=== PATIENT | female | born 1980 | race Caucasian/White ===

== ENCOUNTER 2018-05-17 05:49 | Inpatient (IN) | payer MEDICAID, OTHER ==
[~2018-05-17 05:49] MED LIST: Buffered Lidocaine 0.9% SYRIN* 5 ML/SYR SYRINGE INTRADERM ONE
[2018-05-17] MEDS ORDERED: Heparin VIAL(*) 5000 UNITS/ML VIAL (FIVE THOUSAND) ONE (08:01)
[2018-05-17] MEDS ORDERED: ceFAZolin 1 GM ADVAN(*) 1 GM ADDV.VIAL IVPB ONE (08:02)
[2018-05-17] MEDS ORDERED: ceFAZolin 2 GM PREMIX in ORs 2 GM/50 ML BAG IVPB ONE (08:02)
[2018-05-17] MEDS ORDERED: Bupivacaine 0.25% W/EPI* 10 ML SDV ONE (09:15)
[2018-05-17] MEDS ORDERED: Atracurium* 10 MG/ML 10 ML VIAL ONE (09:18)
[2018-05-17] MEDS ORDERED: Midazolam* 1 MG/ML 5 ML VIAL (5 MG) ONE (09:18)
[2018-05-17] MEDS ORDERED: Propofol* 10 MG/ML 20 ML BTL IV PUSH ONE (09:18)
[2018-05-17] MEDS ORDERED: fentaNYL* 50 MCG/ML 2 ML VIAL (100 MCG VIAL) ONE ×3 (09:18→11:26)
[2018-05-17] MEDS ORDERED: Dexamethasone IV* 4 MG/ML 1 ML (4 MG) ONE (09:53)
[2018-05-17] MEDS ORDERED: Scopolamine 1.5 mg* PATCH TRANSDERM PRN (10:48)
[2018-05-17] MEDS ORDERED: Naloxone* 0.4 MG/ML 1 ML VIAL IV PRN (10:48)
[2018-05-17] MEDS ORDERED: Ondansetron INJ* 2 MG/ML VIAL IV PRN (10:48)
[2018-05-17] MEDS ORDERED: DiMENhydriNATE IV* 50 MG/ML VIAL IV PUSH PRN (10:48)
[2018-05-17] MEDS ORDERED: Ketorolac INJ* 30 MG/ML 1 ML VIAL ONE (10:55)
[2018-05-17] MEDS ORDERED: Ondansetron INJ* 2 MG/ML VIAL ONE ×2 (10:55→12:00)
[2018-05-17] MEDS ORDERED: Glycopyrrolate IV* 0.2 MG/ML 1 ML VIAL ONE (11:07)
[2018-05-17] MEDS ORDERED: Scopolamine 1.5 mg* PATCH ONE (11:26)
[2018-05-17] MEDS ORDERED: HYDROmorphone INJ1* 1 MG/ML SYRINGE ONE (11:26)
[2018-05-17] MEDS ORDERED: DiMENhydriNATE IV* 50 MG/ML VIAL ONE (11:26)
--- NOTE | 2018-05-17 11:27 | OP ---
Operative Report - Blank - Operative Report Date of Operation: 05/17/18 Note: Brief Operative Note Preop Dx: Morbid Obesity Postop Dx: same Procedure: laparoscopic sleeve gastrectomy Anesthesia: GET Surgeon: Arabella Spout Tender: LEANDRA Allen Fluids: 1900 ml RL EBL: < 25 ml Specimen: portion of stomach Drains: none Findings: dictated
[2018-05-17] MEDS ORDERED: diPHENhydraMINE IV* 50 MG/ML 1 ml VIAL (BENADRYL) SLOW PUSH PRN (11:28)
[2018-05-17] MEDS ORDERED: HYDROmorphone INJ1* 1 MG/ML SYRINGE IV PRN ×2 (11:28)
[2018-05-17] MEDS: fentaNYL* 50 MCG/ML 2 ML VIAL (100 MCG VIAL) IV PRN ×2 (11:28→12:02)
[2018-05-17] MEDS ORDERED: Acetaminophen ADULT LIQ* 650 MG/20.3 ML UDC PO PRN (11:28)
[2018-05-17] MEDS ORDERED: HYDROcodone/ACET. 7.5/325 LIQ* 15 ML UDC PO PRN (11:28)
[2018-05-17] MEDS: HYDROmorphone INJ1* 1 MG/ML SYRINGE IV PRN ×2 (11:29→12:02)
[2018-05-17] MEDS ORDERED: Ondansetron ODT TAB* 4 MG SL PRN (11:35)
[2018-05-17] MEDS: Heparin VIAL(*) 5000 UNITS/ML VIAL (FIVE THOUSAND) SUBCUT SCH ×2 (15:03→21:47)
--- NOTE | 2018-05-17 17:54 | OP ---
CC: [facility]; Rachael Coronado NP.* DATE OF OPERATION: 05/17/18 - ROOM #338 DATE OF : 82. SURGEON: Vaughn Bell M.D. CONVEYOR BELT OPERATOR: LEANDRA Rodriguez. PRIMARY CARE PHYSICIAN: Rachael Coronado NP. ANESTHESIOLOGIST: Dr. Tobar. ANESTHESIA: General anesthesia. PRE-OP DIAGNOSES: 1. Clinically severe obesity. 2. Sleep apnea. 3. Insulin resistance. POST-OP DIAGNOSES: 1. Clinically severe obesity. 2. Sleep apnea. 3. Insulin resistance. OPERATIVE PROCEDURE: Laparoscopic sleeve gastrectomy. FLUIDS GIVEN: 1900 cc of crystalloid. ESTIMATED BLOOD LOSS: Minimal. SPECIMENS: Portion of stomach. DRAINS: None. DESCRIPTION OF PROCEDURE: The patient was identified in the preoperative area. Consent was signed after the discussion with her and her family members again. She was marked, brought to the operating room, placed on the operating room table in supine position. Preoperative antibiotics were given. Sequential devices were placed on bilateral lower extremities. General anesthesia was induced. The patient's abdomen was prepped and draped in a standard surgical fashion. A time- out was performed. Folds of the umbilicus were elevated anteriorly and a Veress needle was inserted into the abdominal cavity, which was then allowed to insufflate to a pressure of 15 mmHg. The patient tolerated the insufflation well. [place] between the xiphoid and the umbilicus, a 12-mm trocar was inserted just left of midline. Laparoscope was inserted through this. There was no evidence of injury from the trocar insertion, which was just into the peritoneum or the Veress needle, which was then removed. Additional two 5-mm trocars were then placed in the left upper quadrant and a 12-mm in the right upper quadrant. Review of the abdomen showed normal-appearing bowel, enlarged liver. We placed a Deny retractor through the subxiphoid incision and retracted the liver anteriorly into the right. This exposed a gastroesophageal fat pad, which was dissected medially, but keeping it on the proximal anterior stomach. Blunt dissection as well as sharp dissection was carried out to expose the left shazia. We then entered the lesser sac along the greater curvature approximately 6 cm proximal to the pylorus. We then took the vasculature of the greater curvature right up to the angle of His where we previously made our dissection. Portion of the stomach appeared to show some injury to the serosa, but this appeared to be in what would become our specimen. Additional dissection was carried out posteriorly until we could fully rotate the stomach along its axis. We did place a 40-Kiswahili bougie in just to evaluate better the proximal stomach to make sure that we were in good space and did all the dissection we could at this point. Again, the serosal injury of the stomach did appear well away from where our staple line would be. Next, a sleeve stomach was created using a 60 mm purple BEULAH stapling devices with reinforcing strips starting at 6 cm proximal to the pylorus along the greater curvature and heading towards the incisura. We fired this after putting the bougie deeper and down to the antrum of the stomach. We completed a sleeve stomach in a standard fashion hugging the bougie as we extended up the stomach. We assured that the deserosalized area of the stomach was outside of our staple line in the portion that would become the specimen. The specimen was then placed in an endoscopic retrieval bag. Bougie was removed and the sleeve stomach lay flat without any corkscrewing. The very first staple line did show that it did pull away somewhat to posterior attachments and for this reason, I placed a single 2-0 silk suture in a figure- of- eight fashion around the staple line to bolster this area just bringing peritoneum over the staple line. Hemostasis was excellent. Deny retractor was removed. The stomach was then removed through the right upper quadrant port site in its endoscopic retrieval bag. We closed the fascia at this level with 0 Polysorb suture using an EndoClose device. We injected additional anesthetic at this site and allowed the abdomen to collapse. Trocars were removed under direct vision and all 5 skin incisions were reapproximated with 4-0 Monocryl subcuticular sutures followed by Steri-Strips and sterile dressing. The patient tolerated the procedure well and was awoken up in OR. [id number]/[facility] #: [id number] [facility] HOSPITALEwa
[2018-05-17] MEDS ORDERED: Metoclopramide IV* 5 MG/ML 2 ML VIAL ONE (17:56)
[2018-05-17] MEDS: Ketorolac INJ* 30 MG/ML 1 ML VIAL IV PRN (17:59)
[2018-05-17] MEDS: Metoclopramide IV* 5 MG/ML 2 ML VIAL IV PRN (18:00)
[2018-05-17] MEDS: Ondansetron INJ* 2 MG/ML VIAL IV PRN (21:46)
[2018-05-17] MEDS: Famotidine IV* 10 MG/ML 2 ML (20 mg) IV SLOW PU SCH (21:46)
[2018-05-18] MEDS: Metoclopramide IV* 5 MG/ML 2 ML VIAL IV PRN ×3 (00:29→20:11)
[2018-05-18] MEDS: Ketorolac INJ* 30 MG/ML 1 ML VIAL IV PRN ×2 (00:30→13:31)
[2018-05-18] MEDS: Heparin VIAL(*) 5000 UNITS/ML VIAL (FIVE THOUSAND) SUBCUT SCH ×3 (06:24→21:43)
[2018-05-18] MEDS: Ondansetron INJ* 2 MG/ML VIAL IV PRN ×2 (06:27→12:58)
--- NOTE | 2018-05-18 08:33 | RAD ---
HISTORY: s/p sleeve mastectomy COMPARISONS: July 25, 2017 TECHNIQUE: A single contrast fluoroscopic study was performed of the esophagus and upper GI tract. Water-soluble liquid contrast was administered under fluoroscopic observation. Multiple digital spot images were obtained Total fluoroscopy time is 0.6 minutes . FINDINGS: ESOPHAGUS: The esophagus is normal in contour, course, and caliber. There is no stricture or web. Contrast passes easily through the gastroesophageal junction into the stomach. There is normal esophageal motility. STOMACH: The patient is status post sleeve gastrectomy. There is spontaneous gastroesophageal reflux to the distal third of the esophagus. There is no appreciable extravasation or obstruction. No reflux was elicited on the current examination. DUODENUM: The pyloric bulb is smooth. The duodenal mucosal pattern is normal. The duodenal sweep is normal. IMPRESSION: 1. STATUS POST SLEEVE GASTRECTOMY WITHOUT APPRECIABLE EXTRAVASATION OR OBSTRUCTION. 2. GASTROESOPHAGEAL REFLUX CPT II Codes: G9500
[2018-05-18] MEDS: Famotidine IV* 10 MG/ML 2 ML (20 mg) IV SLOW PU SCH ×2 (09:51→21:41)
--- NOTE | 2018-05-18 11:56 | PN ---
Progress Note - Progress Note Date of Service: 05/18/18 SOAP: Subjective:POD#1 S/P LAP SLEEVE minimal discomfort,mild nausea;up walking;using inspiron [] Objective:afeb,VSS,uo 300ml/24h;lungs:clear bilat;heart:RRR;abd:+bs,soft,obese; incisions intact with sterstrips,no drainage;ext:nontender calves [] Assessment:postop UGI no leak,doing well [] Plan:start bariatric clears;ambulate;inspiron []
[2018-05-18] MEDS: D5W 1/2 NS KCl 20 Meq 1000 ML* 1,000 ML IV SCH ×2 (13:25→20:13)
[2018-05-19] MEDS: Ketorolac INJ* 30 MG/ML 1 ML VIAL IV PRN (01:00)
[2018-05-19] MEDS: D5W 1/2 NS KCl 20 Meq 1000 ML* 1,000 ML IV SCH (04:10)
[2018-05-19] MEDS: Heparin VIAL(*) 5000 UNITS/ML VIAL (FIVE THOUSAND) SUBCUT SCH (05:56)
[2018-05-19 08:23] VITALS: BP 129/74
[2018-05-19] MEDS: Famotidine IV* 10 MG/ML 2 ML (20 mg) IV SLOW PU SCH (10:16)
--- NOTE | 2018-05-19 11:59 | PN ---
Progress Note - Progress Note Date of Service: 05/19/18 SOAP: Subjective: Pt seen and examined. Objective: Temp Pulse Resp BP Pulse Ox 98.3 F 72 16 129/74 97 05/19/18 07:52 05/19/18 07:52 05/19/18 07:52 05/19/18 07:52 05/19/18 07:52 a and ox3, nad lungs clear abdo: soft/ ND/NT no calf tenderness Assessment: POD 2 sleeve Plan: d/c home fu appt next week case d/w NPP
--- NOTE | 2018-05-19 12:15 | DS ---
AMENDED REPORT NOW INCLUDES DESIGNATED COSIGNER CC: Dr. Bell; [facility] * DATE OF ADMISSION: 05/17/2018. DATE OF DISCHARGE: 05/19/2018. ATTENDING PHYSICIAN: Dr. Vaughn Bell * (dictated by Josefa Bynum NP). HOSPITAL COURSE: Please refer to admission history and physical for admission details. The patient was taken to the operating room on 05/17/2018 and underwent laparoscopic sleeve gastrectomy. She has had an uneventful post- operative course and as of the morning of discharge was tolerating 120 ml of clear liquids per hour. Her pain was well-controlled. She was ambulating in the [place] and using her Inspiron. PHYSICAL EXAMINATION: Vital Signs: Temperature this morning 98.3, vital signs are stable, O2 saturation 97 percent on room air. Lungs: Breath sounds bilaterally clear and equal. Heart: Regular rate and rhythm. No murmurs or rubs appreciated. Abdomen: Active bowel sounds. Laparoscopic incision sites are clean, dry, and intact. Resolving mild ecchymosis around the left lateral incision. No signs of drainage or infection. The abdomen is soft and minimally tender to palpation. Extremities: Nontender calves. IMPRESSION: Postoperative day number two, status post laparoscopic sleeve gastrectomy, doing very well. PLAN: Discharge home today. She has a follow-up appointment at [facility] next week. All of her home medications were reviewed. All of her discharge instructions were reviewed. She will follow the prescribed bariatric dietary guidelines and knows to call with any concerns. She does have liquid analgesic at home as needed and an oral antiemetic was prescribed as well. ZEKE BYNUM NP [id number]/[facility] #: [id number] LAMAR
[2018-05-20] MEDS ORDERED: Scopolamine PATCH Remove* 1 NOTE MISC PATCH OFF ONE (10:49)
== END 2018-05-19 11:15 | disposition home or self-care (01) | DRG 403 ==
LOC: AA 07:53 → SSU 13:15
PROVIDERS: ADMIT Surgery; ATTEND Surgery
PROC: 0DB64Z3 Excision of Stomach, Percutaneous Endoscopic Approach, Vertical (ICD-10-PCS; principal; 2018-05-17 09:15)
DX: E66.01 Morbid (severe) obesity due to excess calories (principal); F32.9 Major depressive disorder, single episode, unspecified; E55.9 Vitamin D deficiency, unspecified; M17.12 Unilateral primary osteoarthritis, left knee; Z96.3 Presence of artificial larynx; E88.81 Metabolic syndrome and other insulin resistance; G47.33 Obstructive sleep apnea (adult) (pediatric); R16.0 Hepatomegaly, not elsewhere classified; Z68.41 Body mass index [BMI] 40.0-44.9, adult; Z82.49 Family history of ischemic heart disease and other diseases of the circulatory system; Z82.61 Family history of arthritis; Z83.49 Family history of other endocrine, nutritional and metabolic diseases; Z83.3 Family history of diabetes mellitus
CPT/HCPCS: 43775; 74246; 81025; 88307; A9270-GY; J0690; J1100; J1170; J1240; J1644; J1885; J2250; J2405; J2704; J2765; J3010

== ENCOUNTER 2018-05-31 07:29 | Inpatient (IN) | payer OTHER ==
[2018-05-31] MEDS ORDERED: Ondansetron INJ* 2 MG/ML VIAL IV ONE (07:52)
[2018-05-31 08:30] LABS: ABS Basophils 0 10^3/ul (0-0.2); ABS Eosinophils 0 10^3/ul (0-0.6); ABS Lymphocytes 0.9 10^3/ul (1.0-4.8); ABS Monocytes 0.2 10^3/ul (0-0.8); ABS Neutrophils 7.5 10^3/ul (1.5-7.7); ABS Nucleated RBC 0 10^3/ul; Eosinophil % 0.1 % (0-6); Hematocrit 45 % (35-47); Hemoglobin 15.3 g/dl (12.0-16.0); Lymphocyte % 10.6 % (25-47); Mean Corpuscular HGB Conc 34 g/dl (31-36); Mean Corpuscular Hemoglobin 31 pg (27-31); Mean Corpuscular Volume 89 fL (80-97); Mean Platelet Volume 8.5 fL (7.4-10.4); Nucleated Red Blood Cells % 0; Platelet Count 275 10^3/ul (150-450); Red Blood Count 5.01 10^6/ul (4.00-5.40); Red Cell Distribution Width 13 % (10.5-15); White Blood Count 8.6 10^3/ul (3.5-10.8)
[2018-05-31 08:37] LABS: INR 1.06 (0.77-1.02)
[2018-05-31] MEDS ORDERED: Thiamine IV 100 MG, Folic Acid IV* 1 MG, Multiple Vitamin IV ADULT* 10 ML in NS 0.9% 10... IV ONE (08:42)
--- NOTE | 2018-05-31 08:42 | ED ---
Abdominal Pain/Female - HPI Summary HPI Summary: Patient presents with acute onset nausea, vomiting and abdominal discomfort since last night. She reports she's had bloating throughout the day yesterday and this crescendoed into nausea and vomiting which has persisted into today. Her last bowel movement was 4 days ago. She attempted to use a stool softener last night without relief. She is 2 weeks status post gastric sleeve surgery with Dr. Bell on 05/17/2018. She had a follow-up one week after surgery and everything seemed to be fine. Her diet has been the same since discharge - today was supposed to be a transition day however she has not made it to this transition. She denies trying to drink more fluids than usual or drinking faster than usual. In fact, she reports she drank less fluid than usual yesterday due to bloating. Denies fever, chills, BERNAL, URI sx, chest pain, SOB, flank pain, urinary sx, vaginal sx. No rectal bleeding or pain. Had some tenderness of her RUQ incision however this seems to be improving. Denies h/o DM and HGA1C is consistently < 6 on previous labs. No h/o ab issues otherwise. 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 Pain Intensity: 0 Allergies/Adverse Reactions: Allergies Allergy/AdvReac Type Severity Reaction Status Date / Time No Known Allergies Allergy Verified 05/17/18 08:14 PMH/Surg Hx/FS Hx/Imm Hx Previously Healthy: Yes Endocrine/Hematology History: Reports: Other Endocrine/Hematological Disorders - obese - s/p gastric sleeve Denies: Hx Anticoagulant Therapy, Hx Blood Disorders, Hx Diabetes, Autoimmune Disease Cardiovascular History: Denies: Hx Hypertension, Hx Pacemaker/ICD, Other Cardiovascular Problems/ Disorders Respiratory History: Reports: Hx Sleep Apnea - R/T TONSILS Denies: Other Respiratory Problems/Disorders GI History: Reports: Hx Irritable Bowel - reports self-diagnosis Denies: Other GI Disorders History: Denies: Hx Renal Disease Musculoskeletal History: Reports: Hx Arthritis - reports left knee Denies: Other Musculoskeletal History Sensory History: Denies: Hx Contacts or Glasses, Hx Hearing Aid Opthamlomology History: Denies: Hx Contacts or Glasses Neurological History: Denies: Other Neuro Impairments/Disorders Psychiatric History: Reports: Hx Depression - MILD. ON MEDS Denies: Hx Panic Disorder - Surgical History Surgery Procedure, Year, and Place: HEART MURMUR REPAIR, 1983, [place] - PATENT DUCTUS FORAMEN -PATCH AGE 3 ( 1.5T ONLY). C SECTION, 2010 [facility] & 2015 - [facility]. 2012, [place], LEFT KNEE. TONSILECTOMY -2013 Hx Anesthesia Reactions: No Infectious Disease History: No Infectious Disease History: Denies: Traveled Outside the [place] in Last 30 Days - Social History Lives: With Family Alcohol Use: None Hx Substance Use: No Substance Use Type: Reports: None Hx Tobacco Use: No Smoking Status (MU): Never Smoked Tobacco Review of Systems Constitutional: Negative Negative: Fever, Chills, Fatigue Eyes: Negative ENT: Negative Cardiovascular: Negative Respiratory: Negative Positive: Abdominal Pain, Vomiting, Nausea. Negative: Diarrhea Genitourinary: Negative Musculoskeletal: Negative Skin: Other - surgical wounds healing Neurological: Negative Psychological: Normal All Other Systems Reviewed And Are Negative: Yes Physical Exam Triage Information Reviewed: Yes Vital Signs On Initial Exam: Initial Vitals Temp Pulse Resp BP Pulse Ox 96.6 F 69 30 137/103 99 05/31/18 07:29 05/31/18 07:29 05/31/18 07:29 05/31/18 07:29 05/31/18 07:29 Vital Signs Reviewed: Yes Appearance: Positive: Ill-Appearing - pt tachypnic from pain/discomfort of nausea - transitions from sitting up to lying down in an effort to get comfortable, Obese Skin: Positive: Warm, Skin Color Reflects Adequate Perfusion, Dry - healing surgical wounds over ab + healing ecchymosis - no erythema, no drainage Head/Face: Positive: Normal Head/Face Inspection Eyes: Positive: Normal, EOMI, Conjunctiva Clear - anicteric sclera ENT: Positive: Normal ENT inspection, Hearing grossly normal, Pharynx normal Neck: Positive: Supple Respiratory/Lung Sounds: Positive: Clear to Auscultation, Breath Sounds Present. Negative: Rales, Rhonchi, Wheezes Cardiovascular: Positive: Normal, RRR, S1, S2 Abdomen Description: Positive: Soft, Other: - TTP epigastric region and LUQ - no rebounding (eval initially post poned d/t nausea - eval performed after zofran - pt appears more comfortable). Negative: CVA Tenderness (R), CVA Tenderness (L) Bowel Sounds: Positive: Absent Musculoskeletal: Positive: Normal, Strength/ROM Intact Neurological: Positive: Normal, Sensory/Motor Intact, Alert, Oriented to Person Place, Time, CN Intact II-III Psychiatric: Positive: Anxious - but consolable Diagnostics - Vital Signs Vital Signs Temp Pulse Resp BP Pulse Ox 05/31/18 07:29 96.6 F 69 30 137/103 99 - Laboratory Lab Results: Lab Results 05/31/18 05/31/18 05/31/18 Range/Units 07:48 08:17 08:17 WBC 8.6 (3.5-10.8) 10^3/ul RBC 5.01 (4.00-5.40) 10^6/ul Hgb 15.3 (12.0-16.0) g/dl Hct 45 (35-47) % MCV 89 (80-97) fL MCH 31 (27-31) pg MCHC 34 (31-36) g/dl RDW 13 (10.5-15) % Plt Count 275 (150-450) 10^3/ul MPV 8.5 (7.4-10.4) fL Neut % (Auto) 86.4 H (38-83) % Lymph % (Auto) 10.6 L (25-47) % Lamar % (Auto) 2.6 (0-7) % Eos % (Auto) 0.1 (0-6) % Baso % (Auto) 0.3 (0-2) % Absolute Neuts (auto) 7.5 (1.5-7.7) 10^3/ul Absolute Lymphs (auto) 0.9 L (1.0-4.8) 10^3/ul Absolute Monos (auto) 0.2 (0-0.8) 10^3/ul Absolute Eos (auto) 0 (0-0.6) 10^3/ul Absolute Basos (auto) 0 (0-0.2) 10^3/ul Absolute Nucleated RBC 0 10^3/ul Nucleated RBC % 0 INR (Anticoag Therapy) 1.06 H (0.77-1.02) APTT 30.4 (26.0-36.3) seconds POC Glucose (mg/dL) 162 H (70-100) mg/dL Result Diagrams: 06/01/18 06:20 06/01/18 06:20 Lab Statement: Any lab studies that have been ordered have been reviewed, and results considered in the medical decision making process. Re-Evaluation - Re-Evaluation First Eval Change: Improved - nausea and pain improved w/ zofran although she reports it's starting to return - ordered compazine; she appears much more comfortable, resting easily, breathing comfortably Abdominal Pain Fem Course/Dx - Course Course Of Treatment: Pt presents w/ N+V since last night. Bloating started yesterday and no BM in [address] reveals: 1. 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 There is thrombus extending into and partially occluding the portal vein. There second area of thrombus in the intrahepatic portion of the portal vein which extends into and occludes a right hepatic portal vein branch. #2. Hepatosplenomegaly and hepatic steatosis. Labs initially revealed low CO2 - suspected to be from hyperventilation d/t pain however with this finding, will check ABG. Spoke w/ Dr. Bell. Initially discussed transfer. Pt requesting [facility] as primary choice. Spoke w/ Dr. Dutton (vascular at [facility]), who reports their care for this condition would be anti-coagulation via IV heparin and monitoring. If she develops necrosis, they would get general surgery involved. Discussed this option with Dr. Bell who agrees w/ anti-coagulation here and admission to his service w/ monitoring. Reviewed pt's wt w/ Dr. Garcia who feels this is safe to rx wt based at 262 lbs. Also reviewed with pt who denies h/o head injury, bleeding, anemia, menorrhagia, hemorrhoids, etc. At time of transition of care , pt is stable and repeat lactic still WNL. She still remains comfortable w/ anti-emetics only. - Diagnoses Provider Diagnoses: Superior mesenteric vein thrombosis, Portal vein thrombosis Discharge - Sign-Out/Discharge Documenting (check all that apply): Patient Departure - Discharge Plan Condition: Stable Disposition: ADMITTED TO [facility] - Billing Disposition and Condition Condition: STABLE Disposition: Admitted to [facility]
[2018-05-31 08:47] LABS: EGFR Non-African American 127.7 (>60)
[2018-05-31 09:06] LABS: Urine Appearance Cloudy; Urine Blood Negative (Negative); Urine Color Yellow; Urine Ketones 2+ (Negative); Urine Protein Negative (Negative); Urine Specific Gravity 1.024 (1.010-1.030); Urine Urobilinogen Negative (Negative)
[2018-05-31] MEDS ORDERED: Iohexol 300* (CONTRAST) 10 ML SDV IV ONE (10:00)
[2018-05-31] MEDS ORDERED: PROCHLORPERAZINE INJ 5 MG/ML 2 ML VIAL IV ONE (10:09)
[2018-05-31] MEDS ORDERED: Heparin DRIP 25,000 UNITS(*) 25,000 UNITS/500 ML BAG IV SCH (13:45)
[2018-05-31] MEDS ORDERED: Heparin VIAL(*) 5000 UNITS/ML VIAL (FIVE THOUSAND) IV PRN (13:56)
[2018-05-31] MEDS ORDERED: Morphine VIAL* 4 MG/ML VIAL (1 ml vial) IV PRN (15:00)
[2018-05-31] MEDS ORDERED: NS 0.9% 1000 ML* 1,000 ML IV SCH (15:00)
[2018-05-31] MEDS ORDERED: Magnesium Sulfate 2 GM IV* 2 GM/50 ML BAG IVPB ONE (15:24)
--- NOTE | 2018-05-31 15:32 | HP ---
CC: Primary Care Doctor, Rachael Coronado NP; [facility] * HISTORY AND PHYSICAL UPDATE: DATE OF ADMISSION: 05/31/18 HISTORY OF PRESENT ILLNESS: Ms. Mariela Li is a 37-year-old female who is 2 weeks status post laparoscopic sleeve gastrectomy, who was doing well up until yesterday when she complained of nausea, vomiting and vague abdominal pain. Pain was diffuse, led to decreased appetite. The patient continued to have bowel movements and pass gas. She denied any fevers or chills. The patient's workup in the emergency room included a CAT scan. These images were reviewed and were suggestive of a superior mesenteric vein thrombosis extending into the portal vein with additional clot burden in the right hepatic branch of the portal vein. No free fluid was noted. No free air. PAST MEDICAL HISTORY: Unchanged including insulin resistance, depression, vitamin D deficiency, osteoarthritis, and sleep apnea. PAST SURGICAL HISTORY: Knee arthroscopy, section, tonsillectomy, thyroplasty, closure of patent ductus arteriosus, and sleeve gastrectomy. REVIEW OF SYSTEMS: As described above. No fevers or chills. Nausea and vomiting that was bilious. No change in bowel habits. Last bowel movement, however, was Tuesday and was normal. Her urine output has been nonconcentrated. She has no dysuria. Pain is under control in the emergency room with minimal narcotic. No history of thrombotic disorders. PHYSICAL EXAMINATION GENERAL: Alert and oriented x3, in no apparent distress. VITAL SIGNS: The patient is afebrile. Vital signs are stable. LUNGS: Clear to auscultation bilaterally. ABDOMEN: Soft, nondistended, nontender. No CVA tenderness. EXTREMITIES: Within normal limits. RECTAL: Exam not performed. DIAGNOSTIC STUDIES/LAB DATA: Labs reviewed show a normal white count with a left shift. An anion gap of 16 with carbon dioxide of 18. She presented with a lactate of 1, which is normal and remains low. Elevated CRP of 78. Elevated lipase of 123. CT scan as described above. 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 The emergency room physicians did reach out both to me and also vascular surgery coverage at [facility], who felt the patient would just warrant anticoagulation and possible exploratory laparotomy if the patient has ischemic bowel. She does not present with ischemic bowel at this point and the plan will be for anticoagulation and watchful waiting and bowel rest. I have asked hospitalist service to help with dosing of the heparin. We will probably convert over to Coumadin, but I will reach out to the mold loft worker for additional care. The patient may also warrant catheter-directed tPA if this is an option. I do not believe it is available at this institution, but I am reaching out to the radiology group. We will also talk with the vascular team at [facility]. The patient is aware of the plan. No antibiotics necessary. We will hold off on her medications at this point. She is getting IV fluids including a banana bag and we will follow up with additional labs that include vitamin levels as they come in. [id number]/[facility] #: [id number] LAMAR
[2018-05-31] MEDS: Heparin DRIP 25,000 UNITS(*) 25,000 UNITS/500 ML BAG IV SCH (17:27)
--- NOTE | 2018-05-31 20:14 | CONS ---
CC: Dr. Vaughn Bell; Rachael Coronado NP * CONSULTATION REPORT: DATE OF CONSULT: 05/31/18 REQUESTING PHYSICIAN IN CONSULT: Dr. Vaughn Bell. MY ATTENDING PHYSICIAN WHILE IN THE HOSPITAL: Dr. Haley Alfonso (report dictated by Juan Carlos Quintero NP). 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 HISTORY OF PRESENT ILLNESS: Ms. Sierra is a 37-year-old female patient that presented to Dr. Bell's service about 2 weeks ago for an elective gastric sleeve surgery. She underwent the procedure without any complication. She says initially she was doing well at home. She was up, ambulatory. She was minding her clear liquid diet. She unfortunately last night had developed a sudden onset of diffuse vague abdominal pain, bloating, pressure, feeling dry heaving, nauseous, in addition to the pain and nausea was not getting any better , so she was concerned that something might be going on given the recent surgery , she came in. She says she really was unable to eat or drink anything because she said her stomach was just spasming and like she was going to dry heave. She does have a history of possible SILAS, patent ductus arteriosus, history of prediabetes, and history of obesity. She denied any fever. Denied any hematemesis or coffee-ground emesis. Denied having any tarry stools. There were no reports of chest pain or shortness of breath. She says she actually made herself short of breath by taking deep breaths quickly because she said that it made the pain better. She came into the ED today. She underwent a CT pelvis, which showed occlusion of at least the proximal portion of the superior mesenteric vein, thrombus extending and partially occluding the portal vein, secondary thrombus in the intrahepatic portion of the portal vein which extends into and includes the right hepatic portal vein branch. Because of these findings, we were asked to evaluate in consult. PAST MEDICAL HISTORY: Significant for: 1. Obesity. 2. Depression. 3. SILAS. 4. PDA (patent ductus arteriosus). 5. Prediabetes. PAST SURGICAL HISTORY: She has had: 1. Gastric sleeve. 2. Knee arthroscopy. 3. x2. 4. Tonsillectomy. 5. Vocal cord surgery. 6. Closure of a PDA. HOME MEDICATIONS: Currently include Zofran 4 mg ODT every 6 hours as needed. ALLERGIES TO MEDICATIONS: Include no known drug allergies. FAMILY HISTORY: Mother was diabetes. Father had a history of hyperlipidemia. SOCIAL HISTORY: She does not smoke. She does not drink. Surrogate decision maker is her . REVIEW OF SYSTEMS: There is no documented fever. She denies having any significant weight change. There is no double vision. She denies having any ear discharge. There is no rhinorrhea. There was no sore throat. There was no thyroid enlargement. She denied having any chest pain. There was no orthopnea. There was no nocturnal dyspnea. There was abdominal pain per my HPI. There was nausea with vomiting and mostly dry heaves. No dysuria, no frequency. No seizure, no loss of consciousness. No pruritus and no skin ulcerations. Review of 14 systems was completed, all others negative. PHYSICAL EXAM: Blood pressure 112/69, pulse 72, respirations were 18, O2 sat 96 %, temperature 98.8. General: At this time, Ms. Sierra is a 37-year-old female patient. She is sitting in the ED stretcher. She does not appear to be in any acute distress. She appears to be well nourished and well developed. HEENT: Head: Atraumatic and normocephalic. Eyes: EOMs are intact. Sclerae anicteric and not pale. Throat: Oral mucosa appears to be dry. No oropharyngeal erythema. Neck was supple. Heart: Sounds S1, S2. She had a regular rate and rhythm. There were no murmurs, rubs, or gallops. Lungs were clear to auscultation bilaterally. There were no wheezes, rales, or rhonchi. Abdomen was soft, flat. There was minimal tenderness in the right upper quadrant. Bowel sounds present. She had no guarding or rebound tenderness. Extremities: Pulses were 2+ throughout. She is moving all 4 extremities with 5 /5 strength. Neurologically, she is awake, she is alert, she is oriented x3. Skin: Grossly intact. She does have incisions to the abdomen, which are clean , dry, and intact. DIAGNOSTIC STUDIES/LAB DATA: WBC of 8.6, RBC of 5.01, hemoglobin 15.3, hematocrit of 45, platelet count 275. INR of 1.06, PTT of 30.4. Sodium was 136 , potassium was 3.8, chloride of 102, bicarb of 18, BUN 8, creatinine of 0.54, glucose 170, lactate 1, calcium 10.4, mag was 1.8. Total bili 0.8, AST 30, ALT 83, alk phos 89. CRP of 78. Albumin of 5.0. Lipase 123. B12 of 1267. Beta hCG negative. Urine showed 2+ ketones, 1+ glucose. CT abdomen and pelvis obtained today, impression: Occlusion of at least the proximal portion of the SMV. There is thrombus extending partially occluding the portal vein. There is a second area of thrombus in the intrahepatic portion of the portal vein, which extends into and includes the right hepatic portal vein branch. Hepatosplenomegaly and hepatic steatosis. Old medical records were reviewed. ASSESSMENT AND PLAN: Ms. Sierra is a 37-year-old female patient coming into the surgical services today with complaints of abdominal pain, on evaluation found to have thrombus in the superior mesenteric vein and partial thrombus in the right hepatic vein. Recommendations at this point are: 1. Status post gastric sleeve bypass. We will defer the management to Dr. Bell and his team. 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 At this point, I would put her on heparin intravenously. When we were able to give her p.o., we can switch her to a NOAC in the form of Xarelto. She will need to be on this minimally 3 months. She will need to follow up with her PCP. At this point, this was provoked in the setting of recent surgery 2 weeks ago and will not need workup. We can touch base with Oncology for formal evaluation, but at this point, it seems like this is provoked. 3. Depression. Continue supportive care. 4. Obstructive sleep apnea. Follow up with her PCP. 5. History of patent ductus arteriosus. Not an active issue currently. 6. Prediabetes. She is no longer on her medication. She can follow up with her PCP. 7. DVT prophylaxis. She will be on a heparin drip. 8. Code status. Full code. 9. Fluids, electrolytes, and nutrition. N.p.o. and I will defer recommendations to Dr. Bell and his team given the recent gastric sleeve surgery. TIME SPENT: On the consult was 60 minutes, greater than half the time was spent [id number] with the patient obtaining my history and physical, other half time was spent going over the plan of care with the patient and implementing plan of care. I did discuss the plan of care with my attending, Dr. Alfonso; she is in agreement. JUAN CARLOS QUINTERO, LONG WINDER TENDER [id number]/CPS #: [id number] LAMAR
[2018-06-01] MEDS: Ondansetron INJ* 2 MG/ML VIAL IV PRN ×2 (05:32→11:44)
[2018-06-01 06:36] LABS: ABS Basophils 0 10^3/ul (0-0.2); ABS Eosinophils 0 10^3/ul (0-0.6); ABS Lymphocytes 1.9 10^3/ul (1.0-4.8); ABS Monocytes 0.4 10^3/ul (0-0.8); ABS Neutrophils 3.6 10^3/ul (1.5-7.7); ABS Nucleated RBC 0 10^3/ul; Eosinophil % 0.5 % (0-6); Hematocrit 40 % (35-47); Hemoglobin 13.8 g/dl (12.0-16.0); Lymphocyte % 32.3 % (25-47); Mean Corpuscular HGB Conc 35 g/dl (31-36); Mean Corpuscular Hemoglobin 31 pg (27-31); Mean Corpuscular Volume 88 fL (80-97); Mean Platelet Volume 8.7 fL (7.4-10.4); Nucleated Red Blood Cells % 0.1; Platelet Count 239 10^3/ul (150-450); Red Cell Distribution Width 13 % (10.5-15)
[2018-06-01 06:42] LABS: INR 1.06 (0.77-1.02)
[2018-06-01 06:59] LABS: EGFR Non-African American 130.5 (>60)
--- NOTE | 2018-06-01 08:03 | PN ---
Progress Note - Progress Note Date of Service: 06/01/18 SOAP: Subjective: Pt seen and examined. feels constipated. some N/V, decreased UO. abdo pain and back pain Objective: Temp Pulse Resp BP Pulse Ox 97.5 F 79 16 109/63 99 06/01/18 03:13 06/01/18 03:13 06/01/18 03:13 06/01/18 03:13 06/01/18 03:13 Intake & Output 05/31/18 06/01/18 06/01/18 22:59 06:59 14:59 Intake Total 0 486 Output Total 100 0 Balance -100 486 Weight 251 lb 6.4 oz a and o x3, nad lungs clear b/l abdo: soft/ obese, tender at upper abdomen. no rebound labs noted, PTT >60, lipase up Assessment: SMV thrombosis, pancreatitis Plan: IVF, NPO coumadin tonight [place] laxative labs in am
[2018-06-01] MEDS ORDERED: Bisacodyl SUPP* 10 MG SUPP PR ONE (08:05)
[2018-06-01] MEDS: KCL 20 MEQ/100 ML IVPREMIX* 20 MEQ/100 ML BAG IV SCH ×2 (08:17→11:10)
[2018-06-01] MEDS: Heparin DRIP 25,000 UNITS(*) 25,000 UNITS/500 ML BAG IV SCH (09:09)
[2018-06-01] MEDS: PROCHLORPERAZINE INJ 5 MG/ML 2 ML VIAL IV PRN ×3 (09:38→22:43)
--- NOTE | 2018-06-01 17:12 | PN ---
Subjective Date of Service: 06/01/18 Interval History: HOSPITALIST PROGRESS NOTE Patient seen and examined at bedside. Care reviewed and d/w Sanaz Morris RN. She c/o abdominal bloating and nausea. Abdominal pain is improved, passing flatus, but no BM. Family History: Unchanged from Admission Social History: Unchanged from Admission Past Medical History: Unchanged from Admission Objective Active Medications: Heparin Sodium (Porcine) (Heparin Vial(*)) 0 units IV .PER PROTOCOL PRN PRN Reason: SEE HEPARIN PROTOCOL Last Admin: 05/31/18 14:34 Dose: 6,450 units Heparin Sodium/Dextrose (Heparin Drip 25,000 Units(*)) 25,000 units in 500 mls @ 0 mls/hr IV PER RATE AIDA; Protocol Last Admin: 06/01/18 09:09 Dose: 31 mls/hr Sodium Chloride (Ns 0.9% 1000 Ml*) 1,000 mls @ 125 mls/hr IV PER RATE AIDA Last Admin: 05/31/18 17:28 Dose: 125 mls/hr Lactated Ringer's (Lactated Ringers 1000 Ml Bag*) 1,000 mls @ 150 mls/hr IV PER RATE AIDA Last Admin: 06/01/18 16:09 Dose: 150 mls/hr Morphine Sulfate (Morphine Vial*) 2 mg IV Q2H PRN PRN Reason: PAIN Last Admin: 06/01/18 13:49 Dose: 2 mg Ondansetron HCl (Zofran Inj*) 4 mg IV Q6H PRN PRN Reason: NAUSEA Last Admin: 06/01/18 11:44 Dose: 4 mg Prochlorperazine Edisylate (Compazine Inj*) 5 mg IV Q6H PRN PRN Reason: NAUSEA/VOMITING Last Admin: 06/01/18 16:09 Dose: 5 mg Vital Signs - 8 hr 06/01/18 06/01/18 06/01/18 10:57 13:49 15:18 Temperature 97.6 F Pulse Rate 64 Respiratory 18 16 18 Rate Blood Pressure 137/71 (mmHg) O2 Sat by Pulse 99 Oximetry 06/01/18 15:20 Temperature 98.2 F Pulse Rate 65 Respiratory 18 Rate Blood Pressure 140/69 (mmHg) O2 Sat by Pulse 100 Oximetry Oxygen Devices in Use Now: None Appearance: Pleasant young lady sitting up in bed in NAD. Eyes: No Scleral Icterus Ears/Nose/Mouth/Throat: Mucous Membranes Moist Neck: Trachea Midline Respiratory: Symmetrical Chest Expansion and Respiratory Effort, Clear to Auscultation Cardiovascular: RRR - Normal S1 and S2 Abdominal: - - Obese, soft, BS+ Neurological: Alert and Oriented x 3, NL Muscle Strength and Tone Result Diagrams: 06/01/18 06:20 06/01/18 06:20 Assess/Plan/Problems-Billing Assessment: Ms Sierra is a 37yo F with PMH of obesity, depression, PDA, glucose intolerance, SILAS, s/p recent sleeve gastrectomy, who presented to ED with c/o abdominal pain, 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 - Patient Problems (1) Superior mesenteric vein thrombosis Comment: - Surgery requested our assistance managing anticoagulation. - D/w Hematology (Dr Noel) - this is a provoked event in the post op setting - when patient tolerating PO again, can transition from heparin drip to oral agent (Xarelto or Eliquis) and recommendation is for 3 months of treatment. (2) Pancreatitis Comment: - Post op related, mild. - NPO, IVF, symptomatic treatment. (3) DVT prophylaxis Comment: - Heparin drip. (4) Full code status Status and Disposition: Hospitalist service will continue to follow with you.
[2018-06-02] MEDS: Ondansetron INJ* 2 MG/ML VIAL IV PRN ×4 (02:26→21:36)
[2018-06-02] MEDS: Heparin DRIP 25,000 UNITS(*) 25,000 UNITS/500 ML BAG IV SCH (02:58)
[2018-06-02 03:12] LABS: ABS Basophils 0 10^3/ul (0-0.2); ABS Eosinophils 0 10^3/ul (0-0.6); ABS Lymphocytes 1.6 10^3/ul (1.0-4.8); ABS Monocytes 0.4 10^3/ul (0-0.8); ABS Neutrophils 3.1 10^3/ul (1.5-7.7); ABS Nucleated RBC 0 10^3/ul; Eosinophil % 0.6 % (0-6); Hematocrit 38 % (35-47); Hemoglobin 12.9 g/dl (12.0-16.0); Lymphocyte % 31.5 % (25-47); Mean Corpuscular HGB Conc 34 g/dl (31-36); Mean Corpuscular Hemoglobin 30 pg (27-31); Mean Corpuscular Volume 89 fL (80-97); Mean Platelet Volume 8.4 fL (7.4-10.4); Nucleated Red Blood Cells % 0.1; Platelet Count 219 10^3/ul (150-450); Red Blood Count 4.25 10^6/ul (4.00-5.40); Red Cell Distribution Width 12 % (10.5-15); White Blood Count 5.2 10^3/ul (3.5-10.8)
[2018-06-02 03:21] LABS: INR 1.05 (0.77-1.02)
[2018-06-02 03:29] LABS: EGFR Non-African American 146.3 (>60)
[2018-06-02] MEDS: PROCHLORPERAZINE INJ 5 MG/ML 2 ML VIAL IV PRN ×3 (04:19→18:20)
--- NOTE | 2018-06-02 09:58 | PN ---
Progress Note - Progress Note Date of Service: 06/02/18 SOAP: Subjective: Pt seen and examined. Wants to go home . pos flatus, small BM, persistent nausea, no vomiting. diffuse abdominal pain, last pain med was yesterday Objective: Laboratory Last Values WBC 5.2 10^3/ul (3.5-10.8) 06/02/18 02:57 RBC 4.25 10^6/ul (4.00-5.40) 06/02/18 02:57 Hgb 12.9 g/dl (12.0-16.0) 06/02/18 02:57 Hct 38 % (35-47) 06/02/18 02:57 MCV 89 fL (80-97) 06/02/18 02:57 MCH 30 pg (27-31) 06/02/18 02:57 MCHC 34 g/dl (31-36) 06/02/18 02:57 RDW 12 % (10.5-15) 06/02/18 02:57 Plt Count 219 10^3/ul (150-450) 06/02/18 02:57 MPV 8.4 fL (7.4-10.4) 06/02/18 02:57 Neut % (Auto) 60.3 % (38-83) 06/02/18 02:57 Lymph % (Auto) 31.5 % (25-47) 06/02/18 02:57 [place] % (Auto) 7.0 % (0-7) 06/02/18 02:57 Eos % (Auto) 0.6 % (0-6) 06/02/18 02:57 Baso % (Auto) 0.6 % (0-2) 06/02/18 02:57 Absolute Neuts (auto) 3.1 10^3/ul (1.5-7.7) 06/02/18 02:57 Absolute Lymphs (auto) 1.6 10^3/ul (1.0-4.8) 06/02/18 02:57 Absolute Monos (auto) 0.4 10^3/ul (0-0.8) 06/02/18 02:57 Absolute Eos (auto) 0 10^3/ul (0-0.6) 06/02/18 02:57 Absolute Basos (auto) 0 10^3/ul (0-0.2) 06/02/18 02:57 Absolute Nucleated RBC 0 10^3/ul 06/02/18 02:57 Nucleated RBC % 0.1 06/02/18 02:57 INR (Anticoag Therapy) 1.05 (0.77-1.02) H 06/02/18 02:58 APTT 51.4 seconds (26.0-36.3) H 06/02/18 02:58 ABG pH 7.39 (7.35-7.45) 05/31/18 16:40 ABG pCO2 28 mmHg (35-45) L 05/31/18 16:40 ABG pO2 97 mmHg (80-100) 05/31/18 16:40 ABG HCO3 19.8 mmol/L (19-31) 05/31/18 16:40 ABG O2 Saturation 99.0 % (95-98) H 05/31/18 16:40 ABG Base Excess -6.6 (-2.0-2.0) L 05/31/18 16:40 Sodium 137 mmol/L (135-145) 06/02/18 02:57 Potassium 3.2 mmol/L (3.5-5.0) L 06/02/18 02:57 Chloride 107 mmol/L (101-111) 06/02/18 02:57 Carbon Dioxide 23 mmol/L (22-32) 06/02/18 02:57 Anion Gap 7 mmol/L (2-11) 06/02/18 02:57 BUN 5 mg/dL (6-24) L 06/02/18 02:57 Creatinine 0.48 mg/dL (0.51-0.95) L 06/02/18 02:57 Est GFR ( Amer) 177.1 (>60) 06/02/18 02:57 Est GFR (Non-Af Amer) 146.3 (>60) 06/02/18 02:57 BUN/Creatinine Ratio 10.4 (8-20) 06/02/18 02:57 Glucose 104 mg/dL (70-100) H 06/02/18 02:57 POC Glucose (mg/dL) 162 mg/dL (70-100) H 05/31/18 07:48 Lactic Acid 0.6 mmol/L (0.5-2.0) 05/31/18 12:54 Calcium 8.9 mg/dL (8.6-10.3) 06/02/18 02:57 Phosphorus 2.9 mg/dL (2.5-5.0) 06/02/18 02:57 Magnesium 1.7 mg/dL (1.9-2.7) L 06/02/18 02:57 Total Bilirubin 0.50 mg/dL (0.2-1.0) 06/02/18 02:57 Direct Bilirubin 0.10 mg/dL (0.03-0.18) 06/01/18 06:20 Indirect Bilirubin 0.4 mg/dL (0.3-1.0) 06/01/18 06:20 AST 54 U/L (13-39) H 06/02/18 02:57 ALT 85 U/L (7-52) H 06/02/18 02:57 Alkaline Phosphatase 62 U/L (34-104) 06/02/18 02:57 C-Reactive Protein 78.06 mg/L (<8.01) H 05/31/18 08:17 Total Protein 5.9 g/dL (6.4-8.9) L 06/02/18 02:57 Albumin 3.5 g/dL (3.2-5.2) 06/02/18 02:57 Globulin 2.4 g/dL (2-4) 06/02/18 02:57 Albumin/Globulin Ratio 1.5 (1-3) 06/02/18 02:57 Amylase 75 U/L (29-103) 05/31/18 08:17 Lipase 207 U/L (11.0-82.0) H 06/02/18 02:57 Vitamin B12 1267 pg/mL (180-914) H 05/31/18 08:17 Beta HCG, Quant < 0.60 mIU/mL 05/31/18 08:17 Urine Color Yellow 05/31/18 08:48 Urine Appearance Cloudy 05/31/18 08:48 Urine pH 5.0 (5-9) 05/31/18 08:48 Ur Specific [place] 1.024 (1.010-1.030) 05/31/18 08:48 Urine Protein Negative (Negative) 05/31/18 08:48 Urine Ketones 2+ (Negative) A 05/31/18 08:48 Urine Blood Negative (Negative) 05/31/18 08:48 Urine Nitrate Negative (Negative) 05/31/18 08:48 Urine Bilirubin Negative (Negative) 05/31/18 08:48 Urine Urobilinogen Negative (Negative) 05/31/18 08:48 Ur Leukocyte Esterase Negative (Negative) 05/31/18 08:48 Urine Glucose 1+(50 mg/dl) (Negative) A 05/31/18 08:48 Urine Ascorbic Acid * (Negative) A 05/31/18 08:48 Intake & Output 06/01/18 06/02/18 06/02/18 22:59 06:59 14:59 Intake Total 1275 1473 Output Total 530 400 Balance 745 1073 a and ox3, nad lungs clear abdo: soft/ ND/ minimal tenderness, hypoactive BS labs noted, lipase remains mildly elevated Assessment: SMV thrombosis, pancreatitis Plan: ice chips only d/c oliveira repeat lipase, if no longer increasing, then start diet likely d/c home oral anticoagulation in 24hrs SACMA to cover me until 06/05
--- NOTE | 2018-06-02 15:46 | PN ---
Hospitalist Progress Note Date of Service: 06/02/18 HOSPITALIST PROGRESS NOTE Case d/w Dr. Bell. Her lipase is a little higher today and she still NPO, but he thinks we can transition her from heparin to oral agent. Will d/c heparin at dinner time and start Xarelto 15mg PO BID (with meals) for 21 days, followed by 20mg PO daily (with a meal) to complete 3 months of treatment. Hospitalist service remains available to answer questions.
[2018-06-02] MEDS: Rivaroxaban TAB(*) 15 MG PO SCH (16:36)
[2018-06-02] MEDS: KCL 20 MEQ/100 ML IVPREMIX* 20 MEQ/100 ML BAG IV SCH ×3 (16:36→21:30)
[2018-06-03] MEDS: PROCHLORPERAZINE INJ 5 MG/ML 2 ML VIAL IV PRN ×3 (00:08→15:39)
[2018-06-03] MEDS: Ondansetron INJ* 2 MG/ML VIAL IV PRN ×3 (04:29→19:13)
[2018-06-03] MEDS: Rivaroxaban TAB(*) 15 MG PO SCH ×2 (05:10→16:46)
[2018-06-03 06:00] LABS: ABS Basophils 0 10^3/ul (0-0.2); ABS Eosinophils 0 10^3/ul (0-0.6); ABS Monocytes 0.4 10^3/ul (0-0.8); ABS Neutrophils 2.4 10^3/ul (1.5-7.7); ABS Nucleated RBC 0 10^3/ul; Eosinophil % 0.7 % (0-6); Hematocrit 37 % (35-47); Hemoglobin 12.8 g/dl (12.0-16.0); Lymphocyte % 41.1 % (25-47); Mean Corpuscular HGB Conc 35 g/dl (31-36); Mean Corpuscular Hemoglobin 31 pg (27-31); Mean Corpuscular Volume 88 fL (80-97); Mean Platelet Volume 8.3 fL (7.4-10.4); Nucleated Red Blood Cells % 0.2; Platelet Count 227 10^3/ul (150-450); Red Blood Count 4.21 10^6/ul (4.00-5.40); Red Cell Distribution Width 13 % (10.5-15); White Blood Count 4.9 10^3/ul (3.5-10.8)
[2018-06-03 06:16] LABS: EGFR Non-African American 133.4 (>60)
[2018-06-03] MEDS ORDERED: DiMENhydriNATE IV* 50 MG/ML VIAL IV PUSH PRN (10:25)
--- NOTE | 2018-06-03 10:35 | PN ---
Progress Note - Progress Note Date of Service: 06/03/18 SOAP: Subjective: Anxious to go home. Ongoing nausea partially relieved by Compazine/Zofran. No c/o pain. Objective: AVSS abd: obese; soft; incisions c/d/i; no erythema; NT Laboratory Results - last 24 hr 06/02/18 06/03/18 06/03/18 14:26 02:25 05:45 WBC 4.9 RBC 4.21 Hgb 12.8 Hct 37 MCV 88 MCH 31 MCHC 35 RDW 13 Plt Count 227 MPV 8.3 Neut % (Auto) 50.0 Lymph % (Auto) 41.1 [place] % (Auto) 7.6 H Eos % (Auto) 0.7 Baso % (Auto) 0.6 Absolute Neuts (auto) 2.4 Absolute Lymphs (auto) 2.0 Absolute Monos (auto) 0.4 Absolute Eos (auto) 0 Absolute Basos (auto) 0 Absolute Nucleated RBC 0 Nucleated RBC % 0.2 APTT 30.1 Sodium Potassium Chloride Carbon Dioxide Anion Gap BUN Creatinine Est GFR ( Amer) Est GFR (Non-Af Amer) BUN/Creatinine Ratio Glucose Calcium Lipase 210 H 06/03/18 05:45 WBC RBC Hgb Hct MCV MCH MCHC RDW Plt Count MPV Neut % (Auto) Lymph % (Auto) [place] % (Auto) Eos % (Auto) Baso % (Auto) Absolute Neuts (auto) Absolute Lymphs (auto) Absolute Monos (auto) Absolute Eos (auto) Absolute Basos (auto) Absolute Nucleated RBC Nucleated RBC % APTT Sodium 139 Potassium 3.4 L Chloride 106 Carbon Dioxide 26 Anion Gap 7 BUN 3 L Creatinine 0.52 Est GFR ( Amer) 161.4 Est GFR (Non-Af Amer) 133.4 BUN/Creatinine Ratio 5.8 L Glucose 95 Calcium 9.2 Lipase 241 H Assessment: s/p LSG with SMV thrombosis. Pancreatitis? Stable. Plan: Cont NOAC. Keep on ice chips/IVF. Follow lipase (once decr then adv diet) Discussed with patient and mother (counseling time 20 minutes)
[2018-06-03] MEDS ORDERED: KCL 20 MEQ/100 ML IVPREMIX* 20 MEQ/100 ML BAG IV ONE (13:40)
--- NOTE | 2018-06-03 13:56 | PN ---
Subjective Date of Service: 06/03/18 Interval History: Pt wants to eat otherwise no complaints Family History: Unchanged from Admission Social History: Unchanged from Admission Past Medical History: Unchanged from Admission Objective Active Medications: Dimenhydrinate (Dramamine Iv*) 25 mg IV PUSH Q6H PRN PRN Reason: NAUSEA/VOMITING Last Admin: 06/03/18 12:57 Dose: 25 mg Lactated Ringer's (Lactated Ringers 1000 Ml Bag*) 1,000 mls @ 150 mls/hr IV PER RATE [facility] Last Admin: 06/03/18 10:45 Dose: 150 mls/hr Magnesium Sulfate/Dextrose (Magnesium Sulfate 1 Gm Iv*) 1 gm in 100 mls @ 200 mls/hr IV ONCE ONE Stop: 06/03/18 14:29 Potassium Chloride (Potassium Chloride 20 Meq/100 Ml Ivpremix*) 20 meq in 100 mls @ 50 mls/hr IV ONCE ONE Stop: 06/03/18 15:39 Morphine Sulfate (Morphine Vial*) 2 mg IV Q2H PRN PRN Reason: PAIN Last Admin: 06/01/18 13:49 Dose: 2 mg Ondansetron HCl (Zofran Inj*) 4 mg IV Q4H PRN PRN Reason: NAUSEA Last Admin: 06/03/18 10:45 Dose: 4 mg Prochlorperazine Edisylate (Compazine Inj*) 5 mg IV Q6H PRN PRN Reason: NAUSEA/VOMITING Last Admin: 06/03/18 06:39 Dose: 5 mg Rivaroxaban (Xarelto(*)) 15 mg PO BID@0600,1800 [facility] Last Admin: 06/03/18 05:10 Dose: 15 mg Vital Signs - 8 hr 06/03/18 06/03/18 07:30 08:00 Temperature 97.6 F Pulse Rate 68 Respiratory 16 18 Rate Blood Pressure 148/76 (mmHg) O2 Sat by Pulse 100 Oximetry Oxygen Devices in Use Now: None Eyes: No Scleral Icterus Respiratory: Symmetrical Chest Expansion and Respiratory Effort, Clear to Auscultation Cardiovascular: NL Sounds; No Murmurs; No JVD Abdominal: NL Sounds; No Tenderness; No Distention Extremities: No Edema Skin: No Rash or Ulcers Neurological: Alert and Oriented x 3 Result Diagrams: 06/03/18 05:45 06/03/18 05:45 Additional Lab and Data: Lab Results 05/31/18 05/31/18 05/31/18 Range/Units 07:48 08:17 08:17 WBC 8.6 (3.5-10.8) 10^3/ul RBC 5.01 (4.00-5.40) 10^6/ul Hgb 15.3 (12.0-16.0) g/dl Hct 45 (35-47) % MCV 89 (80-97) fL MCH 31 (27-31) pg MCHC 34 (31-36) g/dl RDW 13 (10.5-15) % Plt Count 275 (150-450) 10^3/ul MPV 8.5 (7.4-10.4) fL Neut % (Auto) 86.4 H (38-83) % Lymph % (Auto) 10.6 L (25-47) % [place] % (Auto) 2.6 (0-7) % Eos % (Auto) 0.1 (0-6) % Baso % (Auto) 0.3 (0-2) % Absolute Neuts (auto) 7.5 (1.5-7.7) 10^3/ul Absolute Lymphs (auto) 0.9 L (1.0-4.8) 10^3/ul Absolute Monos (auto) 0.2 (0-0.8) 10^3/ul Absolute Eos (auto) 0 (0-0.6) 10^3/ul Absolute Basos (auto) 0 (0-0.2) 10^3/ul Absolute Nucleated RBC 0 10^3/ul Nucleated RBC % 0 INR (Anticoag Therapy) 1.06 H (0.77-1.02) APTT 30.4 (26.0-36.3) seconds POC Glucose (mg/dL) 162 H (70-100) mg/dL Assess/Plan/Problems-Billing Assessment: Ms Sierra is a 37yo F with PMH of obesity, depression, PDA, glucose intolerance, SILAS, s/p recent sleeve gastrectomy, who presented to ED with c/o abdominal pain, 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 - Patient Problems (1) Pancreatitis Current Visit: Yes Status: Acute Code(s): K85.90 - ACUTE PANCREATITIS WITHOUT NECROSIS OR INFECTION, UNSP SNOMED Code(s): 65541048 Comment: -NPO, IVF, symptomatic treatment -Lipase mildly increased and NPO per surgery (2) Superior mesenteric vein thrombosis Current Visit: Yes Status: Acute Code(s): I81 - PORTAL VEIN THROMBOSIS SNOMED Code(s): 309445690 Comment: - Dr Ferreira discussed with Hematology (Dr Noel) - this is a provoked event in the post op setting - when patient tolerating PO again, can transition from heparin drip to oral agent (Xarelto or Eliquis) and recommendation is for 3 months of treatment. -Was started on Xarelto yesterday.Xarelto 15 mg BID for 21 days and then 20 mg Q daily for a total of 3 months (3) DVT prophylaxis Current Visit: Yes Status: Acute Code(s): LXL9729 - SNOMED Code(s): 763774399 Comment: - Heparin drip. (4) Full code status Current Visit: Yes Status: Acute Code(s): Z78.9 - OTHER SPECIFIED HEALTH STATUS SNOMED Code(s): 326227126 (5) Hypokalemia Current Visit: Yes Status: Acute Code(s): E87.6 - HYPOKALEMIA SNOMED Code( s): 18158762 Comment: Kcl 20 meq IV* 1 Run Will also replace Mg (6) Hypomagnesemia Current Visit: Yes Status: Acute Code(s): E83.42 - HYPOMAGNESEMIA SNOMED Code(s): 958840022 Comment: Mg Iv 1 g to replete which will help correct HypoK as well Status and Disposition: Hospitalist service will continue to follow with you.
[2018-06-03] MEDS ORDERED: Magnesium Sulfate 1 GM IV* 1 GM/100 ML BAG IV ONE (14:00)
[2018-06-04] MEDS: PROCHLORPERAZINE INJ 5 MG/ML 2 ML VIAL IV PRN (03:39)
[2018-06-04] MEDS: Rivaroxaban TAB(*) 15 MG PO SCH ×2 (05:39→17:05)
[2018-06-04 06:12] LABS: ABS Basophils 0 10^3/ul (0-0.2); ABS Eosinophils 0.1 10^3/ul (0-0.6); ABS Lymphocytes 2.3 10^3/ul (1.0-4.8); ABS Monocytes 0.4 10^3/ul (0-0.8); ABS Neutrophils 2.7 10^3/ul (1.5-7.7); ABS Nucleated RBC 0 10^3/ul; Eosinophil % 1.1 % (0-6); Hematocrit 40 % (35-47); Hemoglobin 13.7 g/dl (12.0-16.0); Lymphocyte % 42.7 % (25-47); Mean Corpuscular HGB Conc 35 g/dl (31-36); Mean Corpuscular Hemoglobin 30 pg (27-31); Mean Corpuscular Volume 88 fL (80-97); Nucleated Red Blood Cells % 0.1; Platelet Count 267 10^3/ul (150-450); Red Blood Count 4.51 10^6/ul (4.00-5.40); Red Cell Distribution Width 13 % (10.5-15); White Blood Count 5.5 10^3/ul (3.5-10.8)
--- NOTE | 2018-06-04 11:04 | PN ---
Subjective Date of Service: 06/04/18 Interval History: Reports feeling better.Nausea and vomiting improved Family History: Unchanged from Admission Social History: Unchanged from Admission Past Medical History: Unchanged from Admission Objective Active Medications: Dimenhydrinate (Dramamine Iv*) 25 mg IV PUSH Q6H PRN PRN Reason: NAUSEA/VOMITING Last Admin: 06/03/18 12:57 Dose: 25 mg Lactated Ringer's (Lactated Ringers 1000 Ml Bag*) 1,000 mls @ 150 mls/hr IV PER RATE [facility] Last Admin: 06/04/18 10:16 Dose: 150 mls/hr Morphine Sulfate (Morphine Vial*) 2 mg IV Q2H PRN PRN Reason: PAIN Last Admin: 06/01/18 13:49 Dose: 2 mg Ondansetron HCl (Zofran Inj*) 4 mg IV Q4H PRN PRN Reason: NAUSEA Last Admin: 06/03/18 19:13 Dose: 4 mg Prochlorperazine Edisylate (Compazine Inj*) 5 mg IV Q6H PRN PRN Reason: NAUSEA/VOMITING Last Admin: 06/04/18 03:39 Dose: 5 mg Rivaroxaban (Xarelto(*)) 15 mg PO BID@0600,1800 [facility] Last Admin: 06/04/18 05:39 Dose: 15 mg Vital Signs - 8 hr 06/04/18 06/04/18 06/04/18 03:28 07:40 08:00 Temperature 98.2 F 97.1 F Pulse Rate 102 79 Respiratory 20 16 16 Rate Blood Pressure 118/74 109/70 (mmHg) O2 Sat by Pulse 98 98 Oximetry Oxygen Devices in Use Now: None Eyes: No Scleral Icterus Ears/Nose/Mouth/Throat: Clear Oropharnyx Neck: NL Appearance and Movements; NL JVP, Trachea Midline Respiratory: Symmetrical Chest Expansion and Respiratory Effort, Clear to Auscultation Cardiovascular: NL Sounds; No Murmurs; No JVD Abdominal: NL Sounds; No Tenderness; No Distention Extremities: No Edema Skin: No Rash or Ulcers Neurological: Alert and Oriented x 3 Result Diagrams: 06/04/18 06:04 06/03/18 05:45 Additional Lab and Data: Lab Results 05/31/18 05/31/18 05/31/18 Range/Units 07:48 08:17 08:17 WBC 8.6 (3.5-10.8) 10^3/ul RBC 5.01 (4.00-5.40) 10^6/ul Hgb 15.3 (12.0-16.0) g/dl Hct 45 (35-47) % MCV 89 (80-97) fL MCH 31 (27-31) pg MCHC 34 (31-36) g/dl RDW 13 (10.5-15) % Plt Count 275 (150-450) 10^3/ul MPV 8.5 (7.4-10.4) fL Neut % (Auto) 86.4 H (38-83) % Lymph % (Auto) 10.6 L (25-47) % [place] % (Auto) 2.6 (0-7) % Eos % (Auto) 0.1 (0-6) % Baso % (Auto) 0.3 (0-2) % Absolute Neuts (auto) 7.5 (1.5-7.7) 10^3/ul Absolute Lymphs (auto) 0.9 L (1.0-4.8) 10^3/ul Absolute Monos (auto) 0.2 (0-0.8) 10^3/ul Absolute Eos (auto) 0 (0-0.6) 10^3/ul Absolute Basos (auto) 0 (0-0.2) 10^3/ul Absolute Nucleated RBC 0 10^3/ul Nucleated RBC % 0 INR (Anticoag Therapy) 1.06 H (0.77-1.02) APTT 30.4 (26.0-36.3) seconds POC Glucose (mg/dL) 162 H (70-100) mg/dL Assess/Plan/Problems-Billing Assessment: Ms Sierra is a 37yo F with PMH of obesity, depression, PDA, glucose intolerance, SILAS, s/p recent sleeve gastrectomy, who presented to ED with c/o abdominal pain, 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 - Patient Problems (1) Pancreatitis Current Visit: Yes Status: Acute Code(s): K85.90 - ACUTE PANCREATITIS WITHOUT NECROSIS OR INFECTION, UNSP SNOMED Code(s): 47244670 Comment: -NPO, IVF, symptomatic treatment -Lipase mildly increased and NPO per surgery (2) Superior mesenteric vein thrombosis Current Visit: Yes Status: Acute Code(s): I81 - PORTAL VEIN THROMBOSIS SNOMED Code(s): 476978526 Comment: - Dr Ferreira discussed with Hematology (Dr Noel) - this is a provoked event in the post op setting - when patient tolerating PO again, can transition from heparin drip to oral agent (Xarelto or Eliquis) and recommendation is for 3 months of treatment. -Was started on Xarelto yesterday.Xarelto 15 mg BID for 21 days and then 20 mg Q daily for a total of 3 months (3) DVT prophylaxis Current Visit: Yes Status: Acute Code(s): FRJ1486 - SNOMED Code(s): 108576256 Comment: - Heparin drip. (4) Full code status Current Visit: Yes Status: Acute Code(s): Z78.9 - OTHER SPECIFIED HEALTH STATUS SNOMED Code(s): 200306674 (5) Hypokalemia Current Visit: Yes Status: Acute Code(s): E87.6 - HYPOKALEMIA SNOMED Code( s): 65692261 Comment: Recd Kcl 20 meq IV* 1 Run yesterday Also replaced Mg yesterday Will recheck in am (6) Hypomagnesemia Current Visit: Yes Status: Acute Code(s): E83.42 - HYPOMAGNESEMIA SNOMED Code(s): 170631231 Comment: Recd Mg Iv 1 g to replete which will help correct HypoK as well Status and Disposition: Hospitalist service will continue to follow with you.
--- NOTE | 2018-06-04 11:47 | PN ---
Progress Note - Progress Note Date of Service: 06/04/18 Note: Surgery Progress Note S: 37 yo F sp lap sleeve gastrectomy, readdmitted with findings of SMV thrombosis and pancreatitis, doing much better today. Feels far less pain this morning and just a small amount of nausea. In good spirits. Objective: Vital Signs - 24 hr 06/03/18 06/03/18 06/03/18 15:13 19:00 19:31 Temperature 98.2 F 98.4 F Pulse Rate 69 87 Respiratory 16 18 16 Rate Blood Pressure 147/81 124/74 (mmHg) O2 Sat by Pulse 99 98 Oximetry 06/03/18 06/04/18 06/04/18 22:49 03:28 07:40 Temperature 98.0 F 98.2 F 97.1 F Pulse Rate 64 102 79 Respiratory 16 20 16 Rate Blood Pressure 121/67 118/74 109/70 (mmHg) O2 Sat by Pulse 99 98 98 Oximetry 06/04/18 08:00 Temperature Pulse Rate Respiratory 16 Rate Blood Pressure (mmHg) O2 Sat by Pulse Oximetry Intake & Output 06/03/18 06/04/18 06/04/18 22:59 06:59 14:59 Intake Total 781 1211 Output Total 1000 800 Balance -219 411 Intake: IV Fluids 552 1111 LR 552 1111 Medicated IV 229 magnesium 113 potasium 116 Oral 0 100 Output: Urine 1000 800 Other: # Bowel Movements 0 Laboratory Results - last 24 hr 05/31/18 06/04/18 06/04/18 08:51 06:04 06:04 WBC 5.5 RBC 4.51 Hgb 13.7 Hct 40 MCV 88 MCH 30 MCHC 35 RDW 13 Plt Count 267 MPV 8.0 Neut % (Auto) 48.4 Lymph % (Auto) 42.7 [place] % (Auto) 7.3 H Eos % (Auto) 1.1 Baso % (Auto) 0.5 Absolute Neuts (auto) 2.7 Absolute Lymphs (auto) 2.3 Absolute Monos (auto) 0.4 Absolute Eos (auto) 0.1 Absolute Basos (auto) 0 Absolute Nucleated RBC 0 Nucleated RBC % 0.1 Lipase 268 H Whole Bld Vitamin B1 137 Physical exam: Abd soft, nontender, non distended A/P: 37F sp LSG admitted with SMV thrombosis and pancreatitis. - Lipase still rising slightly. However, patient much improved symptomatically today. She is denying pain today, and only has some nausea - Will obtain another lipase tomorrow, hopefully declines and will advance diet to bariatric clears
[2018-06-05] MEDS: Rivaroxaban TAB(*) 15 MG PO SCH ×2 (05:32→17:46)
[2018-06-05 06:48] LABS: ABS Basophils 0 10^3/ul (0-0.2); ABS Eosinophils 0.1 10^3/ul (0-0.6); ABS Lymphocytes 1.8 10^3/ul (1.0-4.8); ABS Monocytes 0.3 10^3/ul (0-0.8); ABS Neutrophils 2.5 10^3/ul (1.5-7.7); ABS Nucleated RBC 0 10^3/ul; Eosinophil % 1.2 % (0-6); Hematocrit 39 % (35-47); Hemoglobin 13.4 g/dl (12.0-16.0); Lymphocyte % 37.3 % (25-47); Mean Corpuscular HGB Conc 34 g/dl (31-36); Mean Corpuscular Hemoglobin 30 pg (27-31); Mean Corpuscular Volume 88 fL (80-97); Mean Platelet Volume 8.5 fL (7.4-10.4); Nucleated Red Blood Cells % 0.2; Platelet Count 209 10^3/ul (150-450); Red Blood Count 4.41 10^6/ul (4.00-5.40); Red Cell Distribution Width 12 % (10.5-15); White Blood Count 4.7 10^3/ul (3.5-10.8)
[2018-06-05 07:07] LABS: EGFR Non-African American 146.3 (>60)
--- NOTE | 2018-06-05 08:52 | PN ---
Progress Note - Progress Note Date of Service: 06/05/18 SOAP: Subjective: Pt seen and examined. Feels well. no nausea. Objective: af vss a and ox3, nad abdo: soft/ ND/ NT lipase elevated Assessment: HD 5 SMV thrombus, chemical pancreatitis Plan: advance diet likely d/c home tomorrow on anticoag
--- NOTE | 2018-06-05 12:21 | PN ---
Subjective Date of Service: 06/05/18 Interval History: Patient reports she is feeling better and hopes to go home tomorrow. She denies any abdominal pain or discomfort. No fevers or chills. Family History: Unchanged from Admission Social History: Unchanged from Admission Past Medical History: Unchanged from Admission Objective Active Medications: Dimenhydrinate (Dramamine Iv*) 25 mg IV PUSH Q6H PRN PRN Reason: NAUSEA/VOMITING Last Admin: 06/03/18 12:57 Dose: 25 mg Lactated Ringer's (Lactated Ringers 1000 Ml Bag*) 1,000 mls @ 150 mls/hr IV [facility] Last Admin: 06/05/18 08:09 Dose: 150 mls/hr Morphine Sulfate (Morphine Vial*) 2 mg IV Q2H PRN PRN Reason: PAIN Last Admin: 06/01/18 13:49 Dose: 2 mg Ondansetron HCl (Zofran Inj*) 4 mg IV Q4H PRN PRN Reason: NAUSEA Last Admin: 06/03/18 19:13 Dose: 4 mg Prochlorperazine Edisylate (Compazine Inj*) 5 mg IV Q6H PRN PRN Reason: NAUSEA/VOMITING Last Admin: 06/04/18 03:39 Dose: 5 mg Rivaroxaban (Xarelto(*)) 15 mg PO BID@0600,[facility] Last Admin: 06/05/18 05:32 Dose: 15 mg Vital Signs - 8 hr 06/05/18 06/05/18 07:56 08:00 Temperature 97.4 F Pulse Rate 67 Respiratory 18 18 Rate Blood Pressure 125/84 (mmHg) O2 Sat by Pulse 99 Oximetry Oxygen Devices in Use Now: None Appearance: 37 yo female sitting up in bed in NAD A+Ox3 Eyes: No Scleral Icterus, PERRLA Ears/Nose/Mouth/Throat: NL Teeth, Lips, Gums, Mucous Membranes Moist Neck: NL Appearance and Movements; NL JVP Respiratory: Symmetrical Chest Expansion and Respiratory Effort, Clear to Auscultation Cardiovascular: NL Sounds; No Murmurs; No JVD, RRR, No Edema Abdominal: NL Sounds; No Tenderness; No Distention, - - obese Extremities: No Edema, No Clubbing, Cyanosis Neurological: Alert and Oriented x 3, NL Sensation, NL Muscle Strength and Tone Lines/Tubes/Other Access: Clean, Dry and Intact Peripheral IV Nutrition: Taking PO's Result Diagrams: 06/05/18 06:13 06/05/18 06:13 Additional Lab and Data: Lab Results 05/31/18 05/31/18 05/31/18 Range/Units 07:48 08:17 08:17 WBC 8.6 (3.5-10.8) 10^3/ul RBC 5.01 (4.00-5.40) 10^6/ul Hgb 15.3 (12.0-16.0) g/dl Hct 45 (35-47) % MCV 89 (80-97) fL MCH 31 (27-31) pg MCHC 34 (31-36) g/dl RDW 13 (10.5-15) % Plt Count 275 (150-450) 10^3/ul MPV 8.5 (7.4-10.4) fL Neut % (Auto) 86.4 H (38-83) % Lymph % (Auto) 10.6 L (25-47) % [place] % (Auto) 2.6 (0-7) % Eos % (Auto) 0.1 (0-6) % Baso % (Auto) 0.3 (0-2) % Absolute Neuts (auto) 7.5 (1.5-7.7) 10^3/ul Absolute Lymphs (auto) 0.9 L (1.0-4.8) 10^3/ul Absolute Monos (auto) 0.2 (0-0.8) 10^3/ul Absolute Eos (auto) 0 (0-0.6) 10^3/ul Absolute Basos (auto) 0 (0-0.2) 10^3/ul Absolute Nucleated RBC 0 10^3/ul Nucleated RBC % 0 INR (Anticoag Therapy) 1.06 H (0.77-1.02) APTT 30.4 (26.0-36.3) seconds POC Glucose (mg/dL) 162 H (70-100) mg/dL Assess/Plan/Problems-Billing Assessment: Ms Sierra is a 37yo F with PMH of obesity, depression, PDA, glucose intolerance, SILAS, s/p recent sleeve gastrectomy, who presented to ED with c/o abdominal pain, 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 - Patient Problems (1) Superior mesenteric vein thrombosis Comment: - Dr Ferreira discussed with Hematology (Dr Noel) - this is a provoked event in the post op setting - when patient tolerating PO again, can transition from heparin drip to oral agent (Xarelto or Eliquis) and recommendation is for 3 months of treatment. -Was started on Xarelto 06/04. Xarelto 15 mg BID for 21 days and then 20 mg Q daily for a total of 3 months (2) Pancreatitis Comment: -Diet advnace today by surgery, continue IVF, symptomatic treatment -Lipase mildly increased (3) Hypokalemia Comment: - give replcament - repeat in am (4) Hypomagnesemia Comment: electrolyte replacement - repeat in am (5) DVT prophylaxis Comment: jori (6) Full code status Status and Disposition: Hospitalist service will continue to follow with you.
[2018-06-05] MEDS ORDERED: Magnesium Sulfate 2 GM IV* 2 GM/50 ML BAG IVPB ONE (13:00)
[2018-06-05] MEDS ORDERED: KCL 20 MEQ/100 ML IVPREMIX* 20 MEQ/100 ML BAG IV ONE (13:00)
[2018-06-06] MEDS: Rivaroxaban TAB(*) 15 MG PO SCH (05:23)
[2018-06-06] MEDS: PROCHLORPERAZINE INJ 5 MG/ML 2 ML VIAL IV PRN ×2 (07:26→14:05)
[2018-06-06 07:52] LABS: ABS Basophils 0 10^3/ul (0-0.2); ABS Eosinophils 0.1 10^3/ul (0-0.6); ABS Lymphocytes 1.8 10^3/ul (1.0-4.8); ABS Monocytes 0.4 10^3/ul (0-0.8); ABS Neutrophils 3.1 10^3/ul (1.5-7.7); ABS Nucleated RBC 0 10^3/ul; Eosinophil % 1.3 % (0-6); Hematocrit 41 % (35-47); Hemoglobin 14.2 g/dl (12.0-16.0); Lymphocyte % 32.9 % (25-47); Mean Corpuscular HGB Conc 35 g/dl (31-36); Mean Corpuscular Hemoglobin 31 pg (27-31); Mean Corpuscular Volume 88 fL (80-97); Mean Platelet Volume 8.6 fL (7.4-10.4); Nucleated Red Blood Cells % 0.2; Platelet Count 235 10^3/ul (150-450); Red Blood Count 4.66 10^6/ul (4.00-5.40); Red Cell Distribution Width 13 % (10.5-15); White Blood Count 5.4 10^3/ul (3.5-10.8)
[2018-06-06 08:14] LABS: EGFR Non-African American 153.7 (>60)
[2018-06-06] MEDS: Ondansetron INJ* 2 MG/ML VIAL IV PRN (09:27)
[2018-06-06] MEDS ORDERED: Ondansetron INJ* 2 MG/ML VIAL IV ONE (12:17)
--- NOTE | 2018-06-06 16:38 | PN ---
Subjective Date of Service: 06/06/18 Interval History: Patient reports nausea today but no vomiting. Pt denies abdominal pain. Denies fever or chills Pt really wants to go home. Family History: Unchanged from Admission Social History: Unchanged from Admission Past Medical History: Unchanged from Admission Objective Active Medications: Dimenhydrinate (Dramamine Iv*) 25 mg IV PUSH Q6H PRN PRN Reason: NAUSEA/VOMITING Last Admin: 06/03/18 12:57 Dose: 25 mg Lactated Ringer's (Lactated Ringers 1000 Ml Bag*) 1,000 mls @ 150 mls/hr IV PER RATE [facility] Last Admin: 06/06/18 11:27 Dose: 150 mls/hr Morphine Sulfate (Morphine Vial*) 2 mg IV Q2H PRN PRN Reason: PAIN Last Admin: 06/01/18 13:49 Dose: 2 mg Ondansetron HCl (Zofran Inj*) 4 mg IV Q4H PRN PRN Reason: NAUSEA Last Admin: 06/06/18 09:27 Dose: 4 mg Prochlorperazine Edisylate (Compazine Inj*) 5 mg IV Q6H PRN PRN Reason: NAUSEA/VOMITING Last Admin: 06/06/18 14:05 Dose: 5 mg Rivaroxaban (Xarelto(*)) 15 mg PO BID@0600,1800 [facility] Last Admin: 06/06/18 05:23 Dose: 15 mg Vital Signs - 8 hr 06/06/18 12:02 Temperature 97.7 F Pulse Rate 74 Respiratory 16 Rate Blood Pressure 159/94 (mmHg) O2 Sat by Pulse 100 Oximetry Oxygen Devices in Use Now: None Appearance: obese 37 yo female a+ox3 in NAD, appropriate Eyes: No Scleral Icterus, PERRLA Ears/Nose/Mouth/Throat: NL Teeth, Lips, Gums, Mucous Membranes Moist Neck: NL Appearance and Movements; NL JVP Respiratory: Symmetrical Chest Expansion and Respiratory Effort, Clear to Auscultation Cardiovascular: NL Sounds; No Murmurs; No JVD, RRR, No Edema Abdominal: NL Sounds; No Tenderness; No Distention, - - obese - Extremities: No Edema, No Clubbing, Cyanosis Skin: No Rash or Ulcers, No Nodules or Sclerosis Neurological: Alert and Oriented x 3, NL Sensation, NL Muscle Strength and Tone Lines/Tubes/Other Access: Clean, Dry and Intact Peripheral IV Nutrition: Taking PO's Result Diagrams: 06/06/18 07:13 06/06/18 07:13 Additional Lab and Data: Lab Results 05/31/18 05/31/18 05/31/18 Range/Units 07:48 08:17 08:17 WBC 8.6 (3.5-10.8) 10^3/ul RBC 5.01 (4.00-5.40) 10^6/ul Hgb 15.3 (12.0-16.0) g/dl Hct 45 (35-47) % MCV 89 (80-97) fL MCH 31 (27-31) pg MCHC 34 (31-36) g/dl RDW 13 (10.5-15) % Plt Count 275 (150-450) 10^3/ul MPV 8.5 (7.4-10.4) fL Neut % (Auto) 86.4 H (38-83) % Lymph % (Auto) 10.6 L (25-47) % [place] % (Auto) 2.6 (0-7) % Eos % (Auto) 0.1 (0-6) % Baso % (Auto) 0.3 (0-2) % Absolute Neuts (auto) 7.5 (1.5-7.7) 10^3/ul Absolute Lymphs (auto) 0.9 L (1.0-4.8) 10^3/ul Absolute Monos (auto) 0.2 (0-0.8) 10^3/ul Absolute Eos (auto) 0 (0-0.6) 10^3/ul Absolute Basos (auto) 0 (0-0.2) 10^3/ul Absolute Nucleated RBC 0 10^3/ul Nucleated RBC % 0 INR (Anticoag Therapy) 1.06 H (0.77-1.02) APTT 30.4 (26.0-36.3) seconds POC Glucose (mg/dL) 162 H (70-100) mg/dL Assess/Plan/Problems-Billing Assessment: Ms Sierra is a 37yo F with PMH of obesity, depression, PDA, glucose intolerance, SILAS, s/p recent sleeve gastrectomy, who presented to ED with c/o abdominal pain, 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 - Patient Problems (1) Superior mesenteric vein thrombosis Comment: - Dr Ferreira discussed with Hematology (Dr Noel) - this is a provoked event in the post op setting - when patient tolerating PO again, can transition from heparin drip to oral agent (Xarelto or Eliquis) and recommendation is for 3 months of treatment. -Was started on Xarelto 06/04. Xarelto 15 mg BID for 21 days and then 20 mg Q daily for a total of 3 months - Dr. Torres repeated portal vein us - which shows no change from previous imaging. Plan to send patient home and f/u with surgery and PCP as outpt (2) Pancreatitis Comment: -Diet advnace today by surgery, symptomatic treatment -Lipase mildly increased (3) Hypokalemia Comment: - resolved (4) DVT prophylaxis Comment: jori (5) Full code status Status and Disposition: inpatient. Dispo per surgery - plan to DC to home
[2018-06-06 17:49] VITALS: BP 147/78
--- NOTE | 2018-06-07 03:51 | DS ---
CC: Rachael Coronado NP; [facility] * DISCHARGE SUMMARY: DATE OF ADMISSION: DATE OF DISCHARGE: 06/06/18 HISTORY: Ms. Mariela Li is a 37-year-old female who presented 2 weeks status post laparoscopic sleeve gastrectomy with abdominal pain, nausea, and vomiting, underwent a a workup, which included CT scan of the abdomen and pelvis and was consistent with a superior mesenteric vein thrombus extending into the portal vein. She was admitted and started on IV hydration and heparin. She was followed by the hospitalist service who reached out to the hematology service as well and had recommendation for Xarelto, which was started. She was kept in the hospital for multiple days on n.p.o. status because she had elevated lipase level that continued to remain elevated and go up. These were not remarkably high, but was concerned and led n.p.o. status and IV fluids. At one point, the patient did have urinary retention, a Velásquez catheter was inserted for approximately 24 hours. It was removed and the patient had no problem urinating after that. On the day of discharge, the patient was evaluated. She did have nausea that was treated with Reglan and Zofran with some effect. She was having tough time getting comfortable; however, she was very interested in going home. She was afebrile and her vital signs were stable. Alert and oriented x3, in no apparent distress. Lungs: Clear to auscultation bilaterally. Abdomen: Soft, obese, nontender, healed surgical incisions. Extremities within normal limits. Labs reviewed, which showed a white blood cell count normalized at 5.4. Chemistry panel showed mildly elevated anion gap and elevated transaminases. She had a elevated lipase at 271, which is down from her high of 297 the day prior. IMPRESSION: A 37-year-old female, 2 weeks status post sleeve gastrectomy, who was admitted with SMV thrombosis 6 days ago, treated with anti-coagulation, who had elements of elevated lipase and was maintained on n.p.o. Status until she was restarted on bariatric diet. I feel comfortable sending her home at this point with nausea medication and Xarelto, 2 new prescriptions will be Reglan 10 mg p.r.n. and Xarelto 15 mg b.i.d. The patient understands she can contact our office should she show any worsening of her symptoms. She will need a followup study and will need approximately 3 months of anticoagulation. [id number]/[facility] #: [id number] [facility]
== END 2018-06-06 16:55 | disposition home or self-care (01) | DRG 282 ==
LOC: ED 07:29 → MEDTELE 15:00 → OBSVTOIN 06-01 12:00
PROVIDERS: ADMIT Internal Medicine; ATTEND Surgery
PROC: 0T9B70Z Drainage of Bladder with Drainage Device, Via Natural or Artificial Opening (ICD-10-PCS; principal; 2018-06-01)
DX: K85.90 Acute pancreatitis without necrosis or infection, unspecified (principal); I81 Portal vein thrombosis; M17.12 Unilateral primary osteoarthritis, left knee; F32.9 Major depressive disorder, single episode, unspecified; E66.9 Obesity, unspecified; R16.2 Hepatomegaly with splenomegaly, not elsewhere classified; K76.0 Fatty (change of) liver, not elsewhere classified; R33.9 Retention of urine, unspecified; E74.39 Other disorders of intestinal carbohydrate absorption; G47.33 Obstructive sleep apnea (adult) (pediatric); E87.6 Hypokalemia; E83.42 Hypomagnesemia; Z83.3 Family history of diabetes mellitus; Z90.3 Acquired absence of stomach [part of]; Z83.49 Family history of other endocrine, nutritional and metabolic diseases; Z79.01 Long term (current) use of anticoagulants; Z68.38 Body mass index [BMI] 38.0-38.9, adult
CPT/HCPCS: 36415; 74177; 80048; 80053; 80076; 81003; 82150; 82607; 82803; 83605; 83690; 83735; 84100; 84425; 84702; 85025; 85610; 85730; 86140; 93975; 99284; A9270-GY; G0378; J0780; J1240; J1644; J2270; J2405; J3411; J3475; J3480; Q9967